=== PATIENT | male | born 1950 | race Caucasian/White ===

== ENCOUNTER 2017-12-20 08:52 | Day surgery (SDC) | payer OTHER ==
[2017-12-20] VITALS (7 sets, daily range): BP systolic 153–185; BP diastolic 73–94
[2017-12-20] MEDS ORDERED: LIDOcaine 1% 30ml preserv. free vial IJ ONE (09:25)
[2017-12-20] MEDS ORDERED: FAMO20TA8 PO (09:55)
[2017-12-20] MEDS ORDERED: FURO20TA4 PO (09:55)
[2017-12-20] MEDS ORDERED: [UNRECOGNIZED DRUG - CODE] PO (09:55)
[2017-12-20] MEDS ORDERED: INSU100V30 SQ (09:55)
[2017-12-20] MEDS ORDERED: LORA0.5T PO (09:55)
[2017-12-20] MEDS ORDERED: INSU100V9 SQ (09:55)
[2017-12-20] MEDS ORDERED: ESCI10TA54 PO (09:55)
[2017-12-20] MEDS ORDERED: DOCU100C41 PO (09:55)
[2017-12-20] MEDS ORDERED: ATOR40TA PO (09:55)
[2017-12-20] MEDS ORDERED: HEPA1DIS10 SQ (09:55)
[2017-12-20] MEDS ORDERED: ASPI-1265 PO (09:55)
[2017-12-20] MEDS ORDERED: ACET325C PO (09:55)
[2017-12-20] MEDS ORDERED: METO-395 PO (09:55)
[2017-12-20] MEDS ORDERED: HYDR-569 PO (09:55)
[2017-12-20] MEDS ORDERED: LIDOcaine 0.5% (5mg/ml) 50ml vial ONE (10:34)
== END 2017-12-20 12:40 | disposition short-term general hospital (02) ==
LOC: SSTAY O 08:52
PROVIDERS: ATTEND Radiology Diagnostic Radiology
DX: Z45.2 Encounter for adjustment and management of vascular access device (principal); E11.9 Type 2 diabetes mellitus without complications; I11.0 Hypertensive heart disease with heart failure; I50.9 Heart failure, unspecified; Z79.4 Long term (current) use of insulin; Z79.82 Long term (current) use of aspirin; Z79.899 Other long term (current) drug therapy; Z95.1 Presence of aortocoronary bypass graft; Z95.0 Presence of cardiac pacemaker
CPT/HCPCS: 36589; A6219; A6257; A6449; J2001